=== PATIENT | male | born 1980 | race African-American/Black ===

== ENCOUNTER 2021-10-06 08:27 | Inpatient (IN) | payer MEDICAID ==
[~2021-10-06] VITALS: Ht 185.4 cm; Wt 136.1 kg
[2021-10-06] MEDS ORDERED: AZITHROMYCIN 500MG/250ML 250 ML IV ONE (09:00)
[2021-10-06] MEDS ORDERED: DEXAMETHASONE 10 MG/ML VIAL IV ONE (09:00)
[2021-10-06] MEDS ORDERED: CEFTRIAXONE 1 G PREMIX 50 ML IV ONE (09:00)
[2021-10-06 09:25] LABS: HEMATOCRIT. 42.6 % (42.0-52.0); HEMOGLOBIN. 13.8 g/dL (14.0-18.0); MEAN CORPUSCULAR HEMOGLOBIN 26.2 pg (28.0-32.0); MEAN CORPUSCULAR VOLUME 80.7 fL (80.0-94.0); MEAN PLATELET VOLUME 8.6 fl (7.4-10.4); PLATELET 209 x1000/uL (130-400); RED BLOOD CELL COUNT 5.28 mill/uL (4.7-6.1); RED CELL DISTRIBUTION WIDTH 14.5 % (11.6-14.6)
[2021-10-06 09:30] LABS: CHLORIDE 97 mEq/L (98-107)
[2021-10-06 09:42] LABS: CLARITY URINE CLOUDY (CLEAR); COLOR URINE DARK YELLOW (YELLOW); KETONES URINE 1+ (NEGATIVE); LEUKOCYTE ESTERASE URINE NEGATIVE (NEGATIVE); NITRITE URINE NEGATIVE (NEGATIVE); OCCULT BLOOD URINE TRACE (NEGATIVE); PROTEIN URINE 3+ (NEGATIVE); SPECIFIC GRAVITY URINE 1.024 (1.005-1.030)
[2021-10-06 09:43] LABS: INR 1.2; PROTHROMBIN TIME 12.4 sec (9.6-11.0)
[2021-10-06 09:51] LABS: D-DIMER > 35.20 mg/L FEU (<0.50)
[2021-10-06 09:59] LABS: PLATELET ESTIMATE NORMAL
[2021-10-06 10:28] LABS: BG BASE EXCESS -2.4 mmol/L (-2.0-2.0); BG FRACTION INSPIRED OXYGEN 100; BG HCO3 ACT 19.4 mmol/L (22.0-26.0); BG PCO2 26.6 mmHg (35.0-45.0); BG PH 7.481 (7.350-7.450); BG PO2 60.3 mmHg (75.0-100.0); BG SAMPLE SITE RIGHT RADIAL; BG VENT MODE MASK - NRB
[2021-10-06] MEDS ORDERED: ONDANSETRON HCL 4MG/2ML INJ IV ONE (10:30)
[2021-10-06] MEDS ORDERED: ENOXAPARIN 80MG/0.8ML SYR SUBCUT ONE (10:30)
[2021-10-06] MEDS ORDERED: POTASSIUM CHLORIDE 20MEQ TABLET SR PO ONE (11:00)
[2021-10-06 13:53] VITALS: BP 125/85
[2021-10-06] MEDS ORDERED: DOCUSATE SODIUM 100MG CAPSULE PO PRN (14:15)
[2021-10-06] MEDS ORDERED: ONDANSETRON HCL 4MG/2ML INJ IV PRN (14:15)
[2021-10-06] MEDS ORDERED: LORAZEPAM 2MG/ML CPJ IV PRN (14:15)
[2021-10-06] MEDS ORDERED: CLONIDINE 0.1MG TABLET PO PRN (14:15)
[2021-10-06] MEDS ORDERED: CEFTRIAXONE 1 G PREMIX 50 ML IV SCH (14:15)
[2021-10-06] MEDS: ALBUTEROL 6.7GM HFA INHALER ORI PRN (14:19)
[2021-10-06 16:00] VITALS: BP 137/95
[2021-10-06 20:00] VITALS: BP 127/86
[2021-10-06] MEDS ORDERED: NALOXONE HCL 0.4MG/ML VIAL IV PRN (22:45)
[2021-10-07] VITALS: BP 121/85
[2021-10-07] MEDS: GUAIFENESIN-DM 200MG-20MG/10ML UDC PO PRN (02:15)
[2021-10-07] MEDS: HYDROCODONE/ACETAMINOPHEN 5/325MG TABLET PO PRN ×4 (02:15→20:19)
[2021-10-07] MEDS: DEXT 5%/0.45% NACL KCL 10MEQ/L 1,000 ML IV SCH ×2 (03:35→14:57)
[2021-10-07 04:00] VITALS: BP 114/77
[2021-10-07 06:19] LABS: HEMATOCRIT. 42.4 % (42.0-52.0); HEMOGLOBIN. 13.9 g/dL (14.0-18.0); MEAN CORPUSCULAR HEMOGLOBIN 26.6 pg (28.0-32.0); MEAN PLATELET VOLUME 7.9 fl (7.4-10.4); PLATELET 165 x1000/uL (130-400); RED BLOOD CELL COUNT 5.23 mill/uL (4.7-6.1); RED CELL DISTRIBUTION WIDTH 14.5 % (11.6-14.6)
[2021-10-07 06:32] LABS: CHLORIDE 104 mEq/L (98-107)
[2021-10-07 08:00] VITALS: BP 125/87
[2021-10-07] MEDS: CEFTRIAXONE 1,000 MG in DEXTROSE 5% WATER 50 ML IV SCH (08:34)
[2021-10-07] MEDS: ENOXAPARIN 30MG/0.3ML SYR SUBCUT SCH ×2 (08:35→20:20)
[2021-10-07] MEDS: GUAIFENESIN 200MG/10ML SUGAR FREE UDC PO PRN ×3 (08:35→20:19)
[2021-10-07] MEDS: DEXAMETHASONE 10 MG/ML VIAL IV SCH (08:35)
[2021-10-07] MEDS: AZITHROMYCIN 500 MG in DEXT 5% WATER 250 ML IV SCH (08:45)
[2021-10-07 12:00] VITALS: BP 133/87
[2021-10-07 16:00] VITALS: BP 130/97
[2021-10-07 20:00] VITALS: BP 121/78
[2021-10-07 20:21] LABS: PLATELET ESTIMATE NORMAL
[2021-10-08] VITALS (7 sets, daily range): BP systolic 129–153; BP diastolic 69–101
[2021-10-08] MEDS: GUAIFENESIN-DM 200MG-20MG/10ML UDC PO PRN ×3 (00:06→21:43)
[2021-10-08] MEDS: HYDROCODONE/ACETAMINOPHEN 5/325MG TABLET PO PRN ×4 (00:07→16:43)
[2021-10-08] MEDS: DEXT 5%/0.45% NACL KCL 10MEQ/L 1,000 ML IV SCH (04:58)
[2021-10-08] MEDS: CEFTRIAXONE 1,000 MG in DEXTROSE 5% WATER 50 ML IV SCH (08:53)
[2021-10-08] MEDS: ENOXAPARIN 30MG/0.3ML SYR SUBCUT SCH ×2 (08:53→20:54)
[2021-10-08] MEDS: AZITHROMYCIN 500 MG in DEXT 5% WATER 250 ML IV SCH (08:53)
[2021-10-08] MEDS: DEXAMETHASONE 10 MG/ML VIAL IV SCH (08:53)
[2021-10-08] MEDS: ALBUTEROL 6.7GM HFA INHALER ORI PRN ×2 (09:18→16:38)
[2021-10-08] MEDS: ACETAMINOPHEN 325MG TABLET PO PRN (12:50)
[2021-10-08] MEDS ORDERED: MORPHINE SULFATE 2 MG/ML CPJ (NOT FOR IM USE) IV PRN (14:45)
[2021-10-09] VITALS (43 sets, daily range): BP systolic 59–194; BP diastolic 36–142
[2021-10-09] MEDS: DEXT 5%/0.45% NACL KCL 10MEQ/L 1,000 ML IV SCH ×3 (04:18→23:23)
[2021-10-09] MEDS ORDERED: ETOMIDATE 2MG/ML 10ML VIAL IV ONE (08:02)
[2021-10-09] MEDS ORDERED: VECURONIUM BROMIDE 10 MG/VIAL IV ONE (08:02)
[2021-10-09] MEDS: ACETAMINOPHEN 325MG TABLET PO PRN (08:04)
[2021-10-09] MEDS: CEFTRIAXONE 1,000 MG in DEXTROSE 5% WATER 50 ML IV SCH (08:04)
[2021-10-09] MEDS: DEXAMETHASONE 10 MG/ML VIAL IV SCH (08:04)
[2021-10-09] MEDS: ENOXAPARIN 30MG/0.3ML SYR SUBCUT SCH ×2 (08:05→21:51)
[2021-10-09] MEDS: AZITHROMYCIN 500 MG in DEXT 5% WATER 250 ML IV SCH (09:12)
[2021-10-09] MEDS: METOPROLOL TARTRATE 25MG TABLET PO SCH ×2 (09:12→21:51)
[2021-10-09] MEDS: GUAIFENESIN-DM 200MG-20MG/10ML UDC PO PRN (13:37)
[2021-10-09] MEDS ORDERED: IPRATROPIUM/ALBUTEROL 0.5-3(2.5)MG/3ML NEB HHN PRN (20:15)
[2021-10-09] MEDS ORDERED: NICARDIPINE 50 MG in SODIUM CHLORIDE 0.9% 230 ML IV PRN (20:15)
[2021-10-09] MEDS: FENTANYL CITRATE/PF 2,500 MCG in SODIUM CHLORIDE 0.9% 200 ML IV PRN (20:54)
[2021-10-09] MEDS: PROPOFOL 10MG/ML 100ML 100 ML IV PRN ×2 (20:55→21:51)
[2021-10-09] MEDS: MIDAZOLAM HCL 100 MG in SODIUM CHLORIDE 0.9% 80 ML IV PRN (21:42)
[2021-10-09 21:44] LABS: BG BASE EXCESS -5.6 mmol/L (-2.0-2.0); BG CARBOXYHEMOGLOBIN 0.5 % (0.5-1.5); BG DEOXYHEMOGLOBIN 17.6 % (0.0-5.0); BG FRACTION INSPIRED OXYGEN 100; BG HCO3 ACT 22.3 mmol/L (22.0-26.0); BG METHEMOGLOBIN 0.4 % (0.0-1.5); BG OXYGEN SATURATION 82.2 % (92.0-98.5); BG OXYHEMOGLOBIN 81.5 % (94.0-97.0); BG PCO2 52.4 mmHg (35.0-45.0); BG PH 7.246 (7.350-7.450); BG SAMPLE SITE LEFT RADIAL; BG TOTAL HEMOGLOBIN 15.2 g/dL (12.0-18.0); BG VENT MODE VENT - AC
[2021-10-10] VITALS (95 sets, daily range): BP systolic 92–169; BP diastolic 36–110
[2021-10-10] MEDS: IPRATROPIUM/ALBUTEROL 0.5-3(2.5)MG/3ML NEB HHN SCH ×6 (01:32→20:41)
[2021-10-10] MEDS: PROPOFOL 10MG/ML 100ML 100 ML IV PRN ×8 (01:32→22:31)
[2021-10-10 05:17] LABS: HEMATOCRIT. 39.4 % (42.0-52.0); HEMOGLOBIN. 12.6 g/dL (14.0-18.0); MEAN CORPUSCULAR HEMOGLOBIN 26.3 pg (28.0-32.0); PLATELET 76 x1000/uL (130-400); RED CELL DISTRIBUTION WIDTH 14.7 % (11.6-14.6)
[2021-10-10 05:25] LABS: CHLORIDE 103 mEq/L (98-107)
[2021-10-10] MEDS ORDERED: LIDOCAINE HCL 1% 10 MG/ML 10ML VIAL ONE (08:14)
[2021-10-10 08:33] LABS: BG BASE EXCESS -1.9 mmol/L (-2.0-2.0); BG CARBOXYHEMOGLOBIN 0.1 % (0.5-1.5); BG DEOXYHEMOGLOBIN 10.2 % (0.0-5.0); BG FRACTION INSPIRED OXYGEN 100; BG METHEMOGLOBIN 0.2 % (0.0-1.5); BG OXYGEN SATURATION 89.8 % (92.0-98.5); BG OXYHEMOGLOBIN 89.5 % (94.0-97.0); BG PH 7.345 (7.350-7.450); BG PO2 62.3 mmHg (75.0-100.0); BG SAMPLE SITE RIGHT RADIAL; BG TOTAL HEMOGLOBIN 13.8 g/dL (12.0-18.0); BG TOTAL RESPIRATORY RATE 34 b/min; BG VENT MODE VENT - AC
[2021-10-10] MEDS: DEXAMETHASONE 10 MG/ML VIAL IV SCH (08:37)
[2021-10-10] MEDS: PANTOPRAZOLE SODIUM 40 MG/VIAL IV SCH (08:37)
[2021-10-10] MEDS: METOPROLOL TARTRATE 25MG TABLET PO SCH ×2 (08:37→21:23)
[2021-10-10] MEDS: DEXT 5%/0.45% NACL 1000ML 1,000 ML IV SCH ×2 (08:37→21:23)
[2021-10-10] MEDS: ENOXAPARIN 30MG/0.3ML SYR SUBCUT SCH (08:39)
[2021-10-10] MEDS: FENTANYL CITRATE/PF 2,500 MCG in SODIUM CHLORIDE 0.9% 200 ML IV PRN (08:55)
[2021-10-10] MEDS: AZITHROMYCIN 500 MG in DEXT 5% WATER 250 ML IV SCH (09:30)
[2021-10-10 10:11] LABS: NUCLEATED RED BLOOD CELLS 1 /100 WBC
[2021-10-10 10:12] LABS: PLATELET ESTIMATE DECREASED
[2021-10-10] MEDS: CEFTRIAXONE 1,000 MG in DEXTROSE 5% WATER 50 ML IV SCH (11:19)
[2021-10-10] MEDS: MIDAZOLAM HCL 100 MG in SODIUM CHLORIDE 0.9% 80 ML IV PRN (11:21)
[2021-10-11] VITALS (101 sets, daily range): BP systolic 94–156; BP diastolic 60–122
[2021-10-11] MEDS: IPRATROPIUM/ALBUTEROL 0.5-3(2.5)MG/3ML NEB HHN SCH ×6 (01:20→20:24)
[2021-10-11] MEDS: MIDAZOLAM HCL 100 MG in SODIUM CHLORIDE 0.9% 80 ML IV PRN ×3 (02:33→21:58)
[2021-10-11] MEDS: FENTANYL CITRATE/PF 2,500 MCG in SODIUM CHLORIDE 0.9% 200 ML IV PRN ×3 (02:34→23:51)
[2021-10-11] MEDS: PROPOFOL 10MG/ML 100ML 100 ML IV PRN ×2 (02:38→06:27)
[2021-10-11 05:11] LABS: HEMATOCRIT. 40.2 % (42.0-52.0); HEMOGLOBIN. 12.7 g/dL (14.0-18.0); MEAN CORPUSCULAR HEMOGLOBIN 25.9 pg (28.0-32.0); MEAN CORPUSCULAR VOLUME 82.1 fL (80.0-94.0); PLATELET 133 x1000/uL (130-400); RED CELL DISTRIBUTION WIDTH 15.3 % (11.6-14.6)
[2021-10-11 05:21] LABS: CHLORIDE 100 mEq/L (98-107)
[2021-10-11] MEDS: DEXAMETHASONE 10 MG/ML VIAL IV SCH (08:26)
[2021-10-11] MEDS: PANTOPRAZOLE SODIUM 40 MG/VIAL IV SCH (08:26)
[2021-10-11] MEDS: METOPROLOL TARTRATE 25MG TABLET PO SCH ×2 (09:00→21:46)
[2021-10-11 09:53] LABS: BG BASE EXCESS -3.8 mmol/L (-2.0-2.0); BG CARBOXYHEMOGLOBIN 0.4 % (0.5-1.5); BG DEOXYHEMOGLOBIN 2.8 % (0.0-5.0); BG FRACTION INSPIRED OXYGEN 100; BG HCO3 ACT 21.8 mmol/L (22.0-26.0); BG METHEMOGLOBIN 0.3 % (0.0-1.5); BG OXYGEN SATURATION 97.2 % (92.0-98.5); BG OXYHEMOGLOBIN 96.5 % (94.0-97.0); BG PCO2 41.7 mmHg (35.0-45.0); BG PH 7.337 (7.350-7.450); BG PO2 95.6 mmHg (75.0-100.0); BG SAMPLE SITE RIGHT RADIAL; BG TOTAL HEMOGLOBIN 13.2 g/dL (12.0-18.0); BG VENT MODE VENT - AC
[2021-10-11] MEDS: CEFTRIAXONE 1,000 MG in DEXTROSE 5% WATER 50 ML IV SCH (10:29)
[2021-10-11] MEDS: DEXT 5%/0.45% NACL 1000ML 1,000 ML IV SCH (10:30)
[2021-10-11] MEDS ORDERED: LIDOCAINE HCL 1% 20ML VIAL (Pyxis) INJ ONE (10:52)
[2021-10-11 15:29] LABS: PLATELET ESTIMATE NORMAL
[2021-10-11] MEDS: PHENYLEPHRINE 100 MG in DEXT 5% WATER 240 ML IV PRN (17:29)
[2021-10-11 19:26] LABS: HEPATITIS B SURFACE ANTIGEN NEGATIVE
[2021-10-11] MEDS: LORAZEPAM 2MG/ML CPJ IV PRN (22:09)
[2021-10-11] MEDS: ACETAMINOPHEN 325MG TABLET PO PRN (23:33)
[2021-10-12] VITALS (103 sets, daily range): BP systolic 65–151; BP diastolic 46–104
[2021-10-12] MEDS: IPRATROPIUM/ALBUTEROL 0.5-3(2.5)MG/3ML NEB HHN SCH ×6 (00:33→22:01)
[2021-10-12] MEDS: DEXT 5%/0.45% NACL 1000ML 1,000 ML IV SCH (00:40)
[2021-10-12] MEDS: MIDAZOLAM HCL 100 MG in SODIUM CHLORIDE 0.9% 80 ML IV PRN ×3 (05:19→17:53)
[2021-10-12] MEDS: FENTANYL CITRATE/PF 2,500 MCG in SODIUM CHLORIDE 0.9% 200 ML IV PRN (06:48)
[2021-10-12] MEDS: PANTOPRAZOLE SODIUM 40 MG/VIAL IV SCH (08:20)
[2021-10-12] MEDS: DEXAMETHASONE 10 MG/ML VIAL IV SCH (08:21)
[2021-10-12] MEDS: METOPROLOL TARTRATE 25MG TABLET PO SCH ×2 (08:29→21:00)
[2021-10-12] MEDS ORDERED: ALTEPLASE 2MG/VIAL ITC SCH (09:00)
[2021-10-12 09:04] LABS: BG BASE EXCESS -3.3 mmol/L (-2.0-2.0); BG CARBOXYHEMOGLOBIN 0.3 % (0.5-1.5); BG FRACTION INSPIRED OXYGEN 100; BG HCO3 ACT 22.3 mmol/L (22.0-26.0); BG METHEMOGLOBIN 0.3 % (0.0-1.5); BG OXYHEMOGLOBIN 97.4 % (94.0-97.0); BG PCO2 42.4 mmHg (35.0-45.0); BG PH 7.339 (7.350-7.450); BG SAMPLE SITE RIGHT RADIAL; BG TOTAL HEMOGLOBIN 11.7 g/dL (12.0-18.0); BG VENT MODE VENT - AC
[2021-10-12] MEDS: LORAZEPAM 2MG/ML CPJ IV PRN ×2 (11:00→11:02)
[2021-10-12] MEDS: MORPHINE SULFATE 100 MG in DEXT 5% WATER 90 ML IV PRN ×2 (11:02→19:43)
[2021-10-12 11:09] LABS: HEMATOCRIT. 35.3 % (42.0-52.0); HEMOGLOBIN. 11.2 g/dL (14.0-18.0); MEAN CORPUSCULAR HEMOGLOBIN 26.2 pg (28.0-32.0); MEAN CORPUSCULAR VOLUME 82.6 fL (80.0-94.0); MEAN PLATELET VOLUME 9.7 fl (7.4-10.4); PLATELET 177 x1000/uL (130-400); RED BLOOD CELL COUNT 4.27 mill/uL (4.7-6.1); RED CELL DISTRIBUTION WIDTH 15.2 % (11.6-14.6)
[2021-10-12 11:21] LABS: CHLORIDE 103 mEq/L (98-107)
[2021-10-12 12:30] LABS: PLATELET ESTIMATE NORMAL
[2021-10-12] MEDS ORDERED: VECURONIUM BROMIDE 10 MG/VIAL IV NR (13:06)
[2021-10-12] MEDS: PHENYLEPHRINE 100 MG in DEXT 5% WATER 240 ML IV PRN (19:43)
[2021-10-13] VITALS (92 sets, daily range): BP systolic 84–125; BP diastolic 42–78
[2021-10-13] MEDS: IPRATROPIUM/ALBUTEROL 0.5-3(2.5)MG/3ML NEB HHN SCH ×6 (00:36→21:31)
[2021-10-13] MEDS: MIDAZOLAM HCL 100 MG in SODIUM CHLORIDE 0.9% 80 ML IV PRN ×3 (01:26→22:51)
[2021-10-13] MEDS: MORPHINE SULFATE 100 MG in DEXT 5% WATER 90 ML IV PRN ×2 (05:58→14:12)
[2021-10-13 06:10] LABS: HEMATOCRIT. 32.7 % (42.0-52.0); HEMOGLOBIN. 10.5 g/dL (14.0-18.0); MEAN CORPUSCULAR HEMOGLOBIN 26.2 pg (28.0-32.0); MEAN CORPUSCULAR VOLUME 81.3 fL (80.0-94.0); MEAN PLATELET VOLUME 9.2 fl (7.4-10.4); PLATELET 231 x1000/uL (130-400); RED BLOOD CELL COUNT 4.02 mill/uL (4.7-6.1); RED CELL DISTRIBUTION WIDTH 14.9 % (11.6-14.6)
[2021-10-13 07:04] LABS: PHOSPHORUS 6.6 mg/dL (2.5-4.9)
[2021-10-13] MEDS: DEXAMETHASONE 10 MG/ML VIAL IV SCH (08:43)
[2021-10-13] MEDS: PANTOPRAZOLE SODIUM 40 MG/VIAL IV SCH (08:43)
[2021-10-13] MEDS: CALCIUM ACETATE 667MG CAPSULE PO SCH ×3 (08:43→17:46)
[2021-10-13] MEDS: METOPROLOL TARTRATE 25MG TABLET PO SCH ×2 (08:44→21:38)
[2021-10-13 09:56] LABS: BG BASE EXCESS 2.6 mmol/L (-2.0-2.0); BG CARBOXYHEMOGLOBIN 0.3 % (0.5-1.5); BG DEOXYHEMOGLOBIN 3.6 % (0.0-5.0); BG FRACTION INSPIRED OXYGEN 100; BG HCO3 ACT 27.4 mmol/L (22.0-26.0); BG METHEMOGLOBIN 0.2 % (0.0-1.5); BG OXYGEN SATURATION 96.4 % (92.0-98.5); BG OXYHEMOGLOBIN 95.9 % (94.0-97.0); BG PCO2 43.1 mmHg (35.0-45.0); BG PH 7.421 (7.350-7.450); BG PO2 90.1 mmHg (75.0-100.0); BG TOTAL HEMOGLOBIN 11.7 g/dL (12.0-18.0); BG VENT MODE VENT - AC
[2021-10-13] MEDS ORDERED: VANCOMYCIN 1500MG in DEXTROSE 5% WATER 250ML IV SCH (10:00)
[2021-10-13] MEDS: PIPERACILLIN/TAZOBACTAM 3.375 G in DEXTROSE 5% WATER 50 ML IV SCH ×2 (11:06→21:38)
[2021-10-13] MEDS: METOCLOPRAMIDE HCL 10MG/2ML VIAL IV SCH ×2 (12:18→17:46)
[2021-10-13] MEDS: LACTULOSE 20G/30ML UDC PO PRN (12:18)
[2021-10-13 12:20] LABS: PLATELET ESTIMATE NORMAL
[2021-10-13 19:56] LABS: CLARITY URINE TURBID (CLEAR); COLOR URINE DARK YELLOW (YELLOW); KETONES URINE NEGATIVE (NEGATIVE); LEUKOCYTE ESTERASE URINE TRACE (NEGATIVE); NITRITE URINE NEGATIVE (NEGATIVE); OCCULT BLOOD URINE 3+ (NEGATIVE); PROTEIN URINE 2+ (NEGATIVE); SPECIFIC GRAVITY URINE 1.018 (1.005-1.030)
[2021-10-14] VITALS (97 sets, daily range): BP systolic 107–154; BP diastolic 61–100
[2021-10-14] MEDS: METOCLOPRAMIDE HCL 10MG/2ML VIAL IV SCH ×4 (00:30→17:17)
[2021-10-14] MEDS: MORPHINE SULFATE 100 MG in DEXT 5% WATER 90 ML IV PRN ×3 (01:07→19:30)
[2021-10-14] MEDS: IPRATROPIUM/ALBUTEROL 0.5-3(2.5)MG/3ML NEB HHN SCH ×6 (02:12→20:15)
[2021-10-14 05:53] LABS: HEMATOCRIT. 31.1 % (42.0-52.0); HEMOGLOBIN. 10.4 g/dL (14.0-18.0); MEAN CORPUSCULAR HEMOGLOBIN 26.9 pg (28.0-32.0); MEAN CORPUSCULAR VOLUME 80.9 fL (80.0-94.0); MEAN PLATELET VOLUME 9.2 fl (7.4-10.4); PLATELET 300 x1000/uL (130-400); RED BLOOD CELL COUNT 3.84 mill/uL (4.7-6.1); RED CELL DISTRIBUTION WIDTH 14.9 % (11.6-14.6)
[2021-10-14] MEDS: CALCIUM ACETATE 667MG CAPSULE PO SCH ×3 (06:35→17:17)
[2021-10-14 07:49] LABS: BG BASE EXCESS -6.7 mmol/L (-2.0-2.0); BG CARBOXYHEMOGLOBIN 0.3 % (0.5-1.5); BG HCO3 ACT 19.2 mmol/L (22.0-26.0); BG OXYHEMOGLOBIN 90.7 % (94.0-97.0); BG PCO2 40.1 mmHg (35.0-45.0); BG PH 7.299 (7.350-7.450); BG PO2 67.8 mmHg (75.0-100.0); BG SAMPLE SITE RIGHT RADIAL; BG TOTAL HEMOGLOBIN 11.2 g/dL (12.0-18.0); BG VENT MODE VENT - AC
[2021-10-14] MEDS ORDERED: SODIUM BICARBONATE 8.4% 1 MEQ/ML 50ML SYR IV NR (08:00)
[2021-10-14] MEDS: DEXAMETHASONE 10 MG/ML VIAL IV SCH (08:41)
[2021-10-14] MEDS: METOPROLOL TARTRATE 25MG TABLET PO SCH ×2 (08:41→21:00)
[2021-10-14] MEDS: PANTOPRAZOLE SODIUM 40 MG/VIAL IV SCH (08:41)
[2021-10-14] MEDS: PIPERACILLIN/TAZOBACTAM 3.375 G in DEXTROSE 5% WATER 50 ML IV SCH ×2 (08:42→21:49)
[2021-10-14] MEDS: PHENYLEPHRINE 100 MG in DEXT 5% WATER 240 ML IV PRN (08:46)
[2021-10-14] MEDS: MIDAZOLAM HCL 100 MG in SODIUM CHLORIDE 0.9% 80 ML IV PRN ×3 (10:45→23:49)
[2021-10-14] MEDS ORDERED: VANCOMYCIN 1 G PREMIX 200 ML IV SCH (14:00)
[2021-10-14] MEDS: DOCUSATE SODIUM SUGAR FREE 100MG/10ML UDC NG SCH (14:06)
[2021-10-14 16:31] LABS: PLATELET ESTIMATE NORMAL
[2021-10-14] MEDS: BISACODYL 10MG SUPP PR PRN (17:19)
[2021-10-15] VITALS (97 sets, daily range): BP systolic 97–147; BP diastolic 42–96
[2021-10-15] MEDS: IPRATROPIUM/ALBUTEROL 0.5-3(2.5)MG/3ML NEB HHN SCH ×6 (00:20→20:53)
[2021-10-15] MEDS: METOCLOPRAMIDE HCL 10MG/2ML VIAL IV SCH ×4 (01:03→18:27)
[2021-10-15] MEDS: MIDAZOLAM HCL 100 MG in SODIUM CHLORIDE 0.9% 80 ML IV PRN ×4 (04:41→23:27)
[2021-10-15] MEDS: MORPHINE SULFATE 100 MG in DEXT 5% WATER 90 ML IV PRN ×2 (04:42→14:17)
[2021-10-15 06:09] LABS: HEMATOCRIT. 30.2 % (42.0-52.0); HEMOGLOBIN. 9.8 g/dL (14.0-18.0); MEAN CORPUSCULAR HEMOGLOBIN 26.1 pg (28.0-32.0); MEAN CORPUSCULAR VOLUME 80.8 fL (80.0-94.0); MEAN PLATELET VOLUME 8.7 fl (7.4-10.4); PLATELET 342 x1000/uL (130-400); RED BLOOD CELL COUNT 3.73 mill/uL (4.7-6.1); RED CELL DISTRIBUTION WIDTH 15.2 % (11.6-14.6)
[2021-10-15] MEDS: CALCIUM ACETATE 667MG CAPSULE PO SCH ×3 (07:02→18:27)
[2021-10-15 08:23] LABS: BG BASE EXCESS 3.1 mmol/L (-2.0-2.0); BG CARBOXYHEMOGLOBIN 0.1 % (0.5-1.5); BG DEOXYHEMOGLOBIN 5.3 % (0.0-5.0); BG FRACTION INSPIRED OXYGEN 90; BG HCO3 ACT 29.3 mmol/L (22.0-26.0); BG METHEMOGLOBIN 0.4 % (0.0-1.5); BG OXYGEN SATURATION 94.7 % (92.0-98.5); BG OXYHEMOGLOBIN 94.2 % (94.0-97.0); BG PCO2 52.3 mmHg (35.0-45.0); BG PH 7.366 (7.350-7.450); BG PO2 79.1 mmHg (75.0-100.0); BG SAMPLE SITE RIGHT RADIAL; BG TOTAL HEMOGLOBIN 10.7 g/dL (12.0-18.0); BG TOTAL RESPIRATORY RATE 34 b/min; BG VENT MODE VENT- PRVC
[2021-10-15] MEDS ORDERED: ALTEPLASE 100MG/VIAL IV ONE (08:45)
[2021-10-15] MEDS ORDERED: ALTEPLASE 2MG/VIAL ITC SCH ×2 (09:00)
[2021-10-15] MEDS: METOPROLOL TARTRATE 25MG TABLET PO SCH ×2 (09:00→21:15)
[2021-10-15] MEDS: DOCUSATE SODIUM SUGAR FREE 100MG/10ML UDC NG SCH (09:37)
[2021-10-15] MEDS: PANTOPRAZOLE SODIUM 40 MG/VIAL IV SCH (09:37)
[2021-10-15] MEDS: PIPERACILLIN/TAZOBACTAM 3.375 G in DEXTROSE 5% WATER 50 ML IV SCH ×2 (09:37→21:15)
[2021-10-15] MEDS: DEXAMETHASONE 10 MG/ML VIAL IV SCH (09:37)
[2021-10-15] MEDS: LACTULOSE 20G/30ML UDC PO PRN (10:24)
[2021-10-15] MEDS: ENOXAPARIN 100MG/ML SYR SUBCUT SCH (11:58)
[2021-10-15] MEDS ORDERED: VECURONIUM BROMIDE 10 MG/VIAL IV NR (12:00)
[2021-10-15] MEDS ORDERED: IOHEXOL-350 100 ML BOTTLE ONE (12:07)
[2021-10-15 13:14] LABS: INR 1.1; PROTHROMBIN TIME 11.4 sec (9.6-11.0)
[2021-10-15] MEDS: PHENYLEPHRINE 100 MG in DEXT 5% WATER 240 ML IV PRN (14:17)
[2021-10-15 17:21] LABS: PLATELET ESTIMATE NORMAL
[2021-10-15] MEDS: BISACODYL 10MG SUPP PR PRN (18:27)
[2021-10-16] VITALS (93 sets, daily range): BP systolic 94–170; BP diastolic 46–144
[2021-10-16] MEDS: IPRATROPIUM/ALBUTEROL 0.5-3(2.5)MG/3ML NEB HHN SCH ×6 (01:06→21:27)
[2021-10-16] MEDS: MORPHINE SULFATE 100 MG in DEXT 5% WATER 90 ML IV PRN ×2 (01:07→11:42)
[2021-10-16] MEDS: METOCLOPRAMIDE HCL 10MG/2ML VIAL IV SCH ×4 (06:02→17:44)
[2021-10-16 06:30] LABS: HEMATOCRIT. 27.6 % (42.0-52.0); HEMOGLOBIN. 9.1 g/dL (14.0-18.0); MEAN CORPUSCULAR HEMOGLOBIN 26.7 pg (28.0-32.0); MEAN CORPUSCULAR VOLUME 81.1 fL (80.0-94.0); MEAN PLATELET VOLUME 8.6 fl (7.4-10.4); PLATELET 385 x1000/uL (130-400); RED BLOOD CELL COUNT 3.41 mill/uL (4.7-6.1); RED CELL DISTRIBUTION WIDTH 14.7 % (11.6-14.6)
[2021-10-16] MEDS: MIDAZOLAM HCL 100 MG in SODIUM CHLORIDE 0.9% 80 ML IV PRN ×3 (06:55→20:30)
[2021-10-16 08:05] LABS: BG BASE EXCESS -4.7 mmol/L (-2.0-2.0); BG CARBOXYHEMOGLOBIN 0.3 % (0.5-1.5); BG DEOXYHEMOGLOBIN 9.1 % (0.0-5.0); BG HCO3 ACT 20.4 mmol/L (22.0-26.0); BG METHEMOGLOBIN 0.3 % (0.0-1.5); BG OXYGEN SATURATION 90.8 % (92.0-98.5); BG OXYHEMOGLOBIN 90.3 % (94.0-97.0); BG PCO2 37.5 mmHg (35.0-45.0); BG PH 7.353 (7.350-7.450); BG PO2 68.4 mmHg (75.0-100.0); BG SAMPLE SITE RIGHT RADIAL; BG TOTAL HEMOGLOBIN 8.6 g/dL (12.0-18.0); BG VENT MODE VENT- PRVC
[2021-10-16] MEDS: METOPROLOL TARTRATE 25MG TABLET PO SCH ×2 (08:15→20:50)
[2021-10-16] MEDS: CALCIUM ACETATE 667MG CAPSULE PO SCH ×3 (08:21→17:44)
[2021-10-16] MEDS: PIPERACILLIN/TAZOBACTAM 3.375 G in DEXTROSE 5% WATER 50 ML IV SCH ×2 (08:22→20:46)
[2021-10-16] MEDS: DEXAMETHASONE 10 MG/ML VIAL IV SCH (08:22)
[2021-10-16] MEDS: DOCUSATE SODIUM SUGAR FREE 100MG/10ML UDC NG SCH (08:22)
[2021-10-16] MEDS: PANTOPRAZOLE SODIUM 40 MG/VIAL IV SCH (08:22)
[2021-10-16] MEDS ORDERED: LACTULOSE 20G/30ML UDC PO SCH (09:30)
[2021-10-16] MEDS ORDERED: NA PHOS,M-B/NA PHOS,DI-BA ENEMA 118ML PR SCH (09:30)
[2021-10-16 10:01] LABS: PLATELET ESTIMATE NORMAL
[2021-10-16] MEDS: ENOXAPARIN 100MG/ML SYR SUBCUT SCH (12:05)
[2021-10-16] MEDS: LACTULOSE 20G/30ML UDC PO PRN (20:46)
[2021-10-17] VITALS (99 sets, daily range): BP systolic 74–157; BP diastolic 31–91
[2021-10-17] MEDS: METOCLOPRAMIDE HCL 10MG/2ML VIAL IV SCH ×4 (00:26→18:51)
[2021-10-17] MEDS: MORPHINE SULFATE 100 MG in DEXT 5% WATER 90 ML IV PRN ×3 (00:26→18:52)
[2021-10-17] MEDS: IPRATROPIUM/ALBUTEROL 0.5-3(2.5)MG/3ML NEB HHN SCH ×6 (00:48→19:50)
[2021-10-17] MEDS: MIDAZOLAM HCL 100 MG in SODIUM CHLORIDE 0.9% 80 ML IV PRN ×3 (04:30→18:51)
[2021-10-17] MEDS: DEXAMETHASONE 10 MG/ML VIAL IV SCH (08:30)
[2021-10-17] MEDS: PANTOPRAZOLE SODIUM 40 MG/VIAL IV SCH (08:30)
[2021-10-17] MEDS: DOCUSATE SODIUM SUGAR FREE 100MG/10ML UDC NG SCH (08:30)
[2021-10-17] MEDS: PIPERACILLIN/TAZOBACTAM 3.375 G in DEXTROSE 5% WATER 50 ML IV SCH ×2 (08:30→22:00)
[2021-10-17] MEDS: METOPROLOL TARTRATE 25MG TABLET PO SCH ×2 (08:31→22:00)
[2021-10-17] MEDS: CALCIUM ACETATE 667MG CAPSULE PO SCH ×3 (08:31→18:51)
[2021-10-17 10:00] LABS: BG CARBOXYHEMOGLOBIN 0.8 % (0.5-1.5); BG DEOXYHEMOGLOBIN 9.6 % (0.0-5.0); BG FRACTION INSPIRED OXYGEN 90; BG HCO3 ACT 24.4 mmol/L (22.0-26.0); BG METHEMOGLOBIN 0.2 % (0.0-1.5); BG OXYGEN SATURATION 90.3 % (92.0-98.5); BG OXYHEMOGLOBIN 89.4 % (94.0-97.0); BG PCO2 43.7 mmHg (35.0-45.0); BG PH 7.365 (7.350-7.450); BG PO2 67.3 mmHg (75.0-100.0); BG SAMPLE SITE RIGHT RADIAL; BG TOTAL HEMOGLOBIN 9.5 g/dL (12.0-18.0); BG VENT MODE VENT - PRVC
[2021-10-17] MEDS ORDERED: VANCOMYCIN 750 MG PREMIX 150 ML IV NR (10:00)
[2021-10-17 10:51] LABS: HEMATOCRIT. 27.2 % (42.0-52.0); HEMOGLOBIN. 8.9 g/dL (14.0-18.0); MEAN CORPUSCULAR HEMOGLOBIN 26.5 pg (28.0-32.0); MEAN CORPUSCULAR VOLUME 80.9 fL (80.0-94.0); MEAN PLATELET VOLUME 8.4 fl (7.4-10.4); PLATELET 430 x1000/uL (130-400); RED BLOOD CELL COUNT 3.36 mill/uL (4.7-6.1); RED CELL DISTRIBUTION WIDTH 14.6 % (11.6-14.6)
[2021-10-17 11:29] LABS: PLATELET ESTIMATE SLIGHTLY INCREASED
[2021-10-17] MEDS: ENOXAPARIN 100MG/ML SYR SUBCUT SCH (12:41)
[2021-10-17] MEDS: ACETAMINOPHEN 325MG TABLET PO PRN ×2 (12:43→23:34)
[2021-10-17] MEDS: PHENYLEPHRINE 100 MG in DEXT 5% WATER 240 ML IV PRN (16:08)
[2021-10-18] VITALS (85 sets, daily range): BP systolic 68–144; BP diastolic 38–96
[2021-10-18] MEDS: IPRATROPIUM/ALBUTEROL 0.5-3(2.5)MG/3ML NEB HHN SCH ×4 (00:05→11:45)
[2021-10-18] MEDS: METOCLOPRAMIDE HCL 10MG/2ML VIAL IV SCH ×4 (00:27→16:49)
[2021-10-18] MEDS: MIDAZOLAM HCL 100 MG in SODIUM CHLORIDE 0.9% 80 ML IV PRN ×3 (01:58→16:50)
[2021-10-18] MEDS: MORPHINE SULFATE 100 MG in DEXT 5% WATER 90 ML IV PRN ×3 (01:59→15:31)
[2021-10-18 04:30] LABS: BG BASE EXCESS -6.4 mmol/L (-2.0-2.0); BG CARBOXYHEMOGLOBIN 0.1 % (0.5-1.5); BG DEOXYHEMOGLOBIN 51.2 % (0.0-5.0); BG FRACTION INSPIRED OXYGEN 100; BG HCO3 ACT 20.9 mmol/L (22.0-26.0); BG METHEMOGLOBIN 0.2 % (0.0-1.5); BG OXYGEN SATURATION 48.6 % (92.0-98.5); BG OXYHEMOGLOBIN 48.5 % (94.0-97.0); BG PCO2 49.8 mmHg (35.0-45.0); BG PH 7.241 (7.350-7.450); BG PO2 33.7 mmHg (75.0-100.0); BG SAMPLE SITE RIGHT BRACHIAL; BG TOTAL HEMOGLOBIN 10.2 g/dL (12.0-18.0); BG TOTAL RESPIRATORY RATE 36 b/min; BG VENT MODE VENT - AC/PRVC
[2021-10-18] MEDS ORDERED: SODIUM BICARBONATE 8.4% 1 MEQ/ML 50ML SYR IV NR ×3 (04:30→16:45)
[2021-10-18] MEDS: PHENYLEPHRINE 100 MG in DEXT 5% WATER 240 ML IV PRN ×3 (05:05→16:00)
[2021-10-18 05:43] LABS: HEMATOCRIT. 29.3 % (42.0-52.0); HEMOGLOBIN. 9.1 g/dL (14.0-18.0); MEAN CORPUSCULAR HEMOGLOBIN 25.8 pg (28.0-32.0); MEAN CORPUSCULAR VOLUME 83.1 fL (80.0-94.0); MEAN PLATELET VOLUME 8.6 fl (7.4-10.4); PLATELET 548 x1000/uL (130-400); RED BLOOD CELL COUNT 3.52 mill/uL (4.7-6.1); RED CELL DISTRIBUTION WIDTH 15.1 % (11.6-14.6)
[2021-10-18] MEDS ORDERED: NOREPINEPHRINE 8 MG in DEXTROSE 5% WATER 250 ML IV PRN (05:45)
[2021-10-18] MEDS ORDERED: NOREPINEPHRINE 8MG/250ML PMX 250 ML IV PRN (05:45)
[2021-10-18] MEDS: PANTOPRAZOLE SODIUM 40 MG/VIAL IV SCH (08:08)
[2021-10-18] MEDS: DEXAMETHASONE 10 MG/ML VIAL IV SCH (08:08)
[2021-10-18] MEDS: CALCIUM ACETATE 667MG CAPSULE PO SCH ×3 (08:08→16:49)
[2021-10-18] MEDS: METOPROLOL TARTRATE 25MG TABLET PO SCH (08:09)
[2021-10-18] MEDS: DOCUSATE SODIUM SUGAR FREE 100MG/10ML UDC NG SCH (08:09)
[2021-10-18] MEDS: PIPERACILLIN/TAZOBACTAM 3.375 G in DEXTROSE 5% WATER 50 ML IV SCH (08:10)
[2021-10-18 08:20] LABS: BG BASE EXCESS -5.7 mmol/L (-2.0-2.0); BG CARBOXYHEMOGLOBIN 0.3 % (0.5-1.5); BG DEOXYHEMOGLOBIN 23.6 % (0.0-5.0); BG HCO3 ACT 22.1 mmol/L (22.0-26.0); BG METHEMOGLOBIN 0.6 % (0.0-1.5); BG OXYGEN SATURATION 76.2 % (92.0-98.5); BG OXYHEMOGLOBIN 75.5 % (94.0-97.0); BG PCO2 55.8 mmHg (35.0-45.0); BG PH 7.216 (7.350-7.450); BG PO2 54.1 mmHg (75.0-100.0); BG SAMPLE SITE RIGHT RADIAL; BG TOTAL HEMOGLOBIN 9.7 g/dL (12.0-18.0); BG VENT MODE VENT- PRVC
[2021-10-18] MEDS ORDERED: SODIUM POLYSTYRENE SULFONATE 15 G/60 ML BOT PO SCH (08:30)
[2021-10-18] MEDS ORDERED: ENOXAPARIN 150MG/ML SYR SUBCUT SCH (09:00)
[2021-10-18] MEDS ORDERED: VASOPRESSIN 20 UNIT in SODIUM CHLORIDE 0.9% 99 ML IV PRN (09:00)
[2021-10-18] MEDS ORDERED: NOREPINEPHRINE 32 MG in DEXT 5% WATER 218 ML IV PRN (10:00)
[2021-10-18] MEDS ORDERED: VECURONIUM BROMIDE 10 MG/VIAL IV NR (10:00)
[2021-10-18] MEDS ORDERED: HEPARIN SODIUM 1,000 UNIT/1ML VIAL IV NR (10:45)
[2021-10-18 11:31] LABS: NUCLEATED RED BLOOD CELLS 2 /100 WBC
[2021-10-18 11:32] LABS: PLATELET ESTIMATE INCREASED
[2021-10-18] MEDS ORDERED: PROPOFOL 10MG/ML 100ML 100 ML IV PRN (15:45)
[2021-10-18] MEDS ORDERED: IPRATROPIUM BROMIDE (0.02%) 0.5MG/2.5ML NEB HHN SCH (16:00)
[2021-10-18 16:25] LABS: BG BASE EXCESS -11.8 mmol/L (-2.0-2.0); BG CARBOXYHEMOGLOBIN 0.3 % (0.5-1.5); BG HCO3 ACT 15.6 mmol/L (22.0-26.0); BG METHEMOGLOBIN 0.4 % (0.0-1.5); BG OXYGEN SATURATION 86.9 % (92.0-98.5); BG OXYHEMOGLOBIN 86.3 % (94.0-97.0); BG PCO2 40.8 mmHg (35.0-45.0); BG PO2 68.1 mmHg (75.0-100.0); BG SAMPLE SITE RIGHT RADIAL; BG TOTAL HEMOGLOBIN 12.6 g/dL (12.0-18.0); BG VENT MODE VENT- PRVC
[2021-10-18] MEDS ORDERED: SODIUM BICARBONATE 8.4% 1 MEQ/ML 50ML SYR IV ONE (16:56)
[2021-10-18] MEDS ORDERED: SODIUM BICARBONATE 100 MEQ in DEXTROSE 5% WATER 1,000 ML IV ONE (18:00)
[2021-10-18] MEDS ORDERED: ALTEPLASE 100 MG in WATER FOR INJECTION,STERILE 100 ML IV NR (18:30)
[2021-10-19] MEDS ORDERED: SODIUM BICARBONATE 8.4% 1 MEQ/ML 50ML SYR IV ONE (08:25)
[2021-10-19] MEDS ORDERED: EPINEPHRINE 0.1MG/ML (1:10,000) 10ML SYR ONE (08:25)
[2021-10-19] MEDS ORDERED: CALCIUM CHLORIDE 1GM/10ML SYR IV ONE (08:25)
== END 2021-10-18 18:40 | DRG 720 ==
LOC: ER 08:27 → 7WST 10:20 → EDBEDREQSVC 10:24 → EDBEDREQ 10:24 → ENRESERV 12:38 → MICUNO 10-09 20:17
PROVIDERS: ADMIT Hospitalist; ATTEND Hospitalist
PROC: 5A09357 Assistance with Respiratory Ventilation, Less than 24 Consecutive Hours, Continuous Positive Airway Pressure (ICD-10-PCS; 2021-10-08)
PROC: 5A0935A Assistance with Respiratory Ventilation, Less than 24 Consecutive Hours, High Flow/Velocity Cannula (ICD-10-PCS; 2021-10-08)
PROC: 5A1955Z Respiratory Ventilation, Greater than 96 Consecutive Hours (ICD-10-PCS; principal; 2021-10-09)
PROC: 0BH17EZ Insertion of Endotracheal Airway into Trachea, Via Natural or Artificial Opening (ICD-10-PCS; 2021-10-09)
PROC: 5A0935A Assistance with Respiratory Ventilation, Less than 24 Consecutive Hours, High Flow/Velocity Cannula (ICD-10-PCS; 2021-10-09)
PROC: 05HY33Z Insertion of Infusion Device into Upper Vein, Percutaneous Approach (ICD-10-PCS; 2021-10-10)
PROC: B54MZZA Ultrasonography of Right Upper Extremity Veins, Guidance (ICD-10-PCS; 2021-10-10)
PROC: 02HV33Z Insertion of Infusion Device into Superior Vena Cava, Percutaneous Approach (ICD-10-PCS; 2021-10-11)
PROC: 5A1D70Z Performance of Urinary Filtration, Intermittent, Less than 6 Hours Per Day (ICD-10-PCS; 2021-10-11)
PROC: 5A1D70Z Performance of Urinary Filtration, Intermittent, Less than 6 Hours Per Day (ICD-10-PCS; 2021-10-12)
PROC: 5A1D70Z Performance of Urinary Filtration, Intermittent, Less than 6 Hours Per Day (ICD-10-PCS; 2021-10-14)
PROC: 5A1D80Z Performance of Urinary Filtration, Prolonged Intermittent, 6-18 hours Per Day (ICD-10-PCS; 2021-10-16)
PROC: 5A12012 Performance of Cardiac Output, Single, Manual (ICD-10-PCS; 2021-10-18)
PROC: 5A1D70Z Performance of Urinary Filtration, Intermittent, Less than 6 Hours Per Day (ICD-10-PCS; 2021-10-18)
DX: A41.89 Other specified sepsis (principal); I26.99 Other pulmonary embolism without acute cor pulmonale; J12.82 Pneumonia due to coronavirus disease 2019; N17.0 Acute kidney failure with tubular necrosis; R65.21 Severe sepsis with septic shock; U07.1 COVID-19; D63.8 Anemia in other chronic diseases classified elsewhere; J80 Acute respiratory distress syndrome; E87.6 Hypokalemia; I89.0 Lymphedema, not elsewhere classified; R74.01 Elevation of levels of liver transaminase levels; E87.5 Hyperkalemia; E78.1 Pure hyperglyceridemia; K59.00 Constipation, unspecified; Z78.1 Physical restraint status; Z99.2 Dependence on renal dialysis
CPT/HCPCS: 36415; 36556; 36600; 71045; 71275; 76937; 80048; 80053; 80202; 81003; 82270; 82375; 82805; 82962; 83605; 83735; 83880; 84100; 84145; 84478; 84484; 85025; 85379; 86140; 86705; 86709; 86803; 87070; 87340; 87426; 87804; 92950; 93005; 93970; 94003; 94640; 99291; C1725; C1752; C1893; C9113; J0456; J0696; J1100; J1644; J1650; J2060; J2250; J2270; J2370; J2405; J2543; J2704; J2765; J2997; J3010; J3370; J3490; J7050; J7060; J7070; Q9967; U0003; U0005; A4315